=== PATIENT | male | born 1980 | race Caucasian/White ===

== ENCOUNTER → 2017-04-23 | Outpatient (CLI) | payer OTHER | LOC: FIMAGING 16:47 | PROVIDERS: ATTEND Physician Assistant Medical | DX: N20.1 Calculus of ureter (principal) ==

== ENCOUNTER 2017-04-30 10:38 | Day surgery (SDC) | payer OTHER ==
--- NOTE | 2017-04-29 17:41 | GHP ---
[f rep st] PREOP HISTORY AND PHYSICAL DATE OF ADMISSION: 04/30/2017 By history, this is a 36-year-old gentleman who has had hematuria and he was noted in November 2016 to have an imaging status that suggested a 7 mm right ureteral stone. He has had a CAT scan on and January 2017 and the stones were identified. He has had a KUB recently that confirmed t he position. He is admitted for right ureteroscopy. PAST MEDICAL HISTORY: Hematuria and ureteral calculi. PAST SURGICAL HISTORY: None. MEDICATION: Gemfibrozil, tamsulosin. ALLERGIES: None. FAMILY HISTORY: Positive for heart disease and diabetes. SOCIAL HISTORY: Has moderate alcohol consumption, nonsmoker. . No children. REVIEW OF SYSTEMS: Negative cardiac, respiratory, GI and endocrine. PHYSICAL EXAMINATION: VITAL SIGNS: Stable. CHEST: Clear. HEART: Regular rate and rhythm. ABDOM EN: Normal. No organomegaly, rebound or guarding. LOWER EXTREMITIES: Normal. PLAN: At the present time, he is admitted for the ureteroscopy. /[id number]/MODL
--- NOTE | 2017-04-30 08:34 | PDHPUP ---
History & Physical Update H&P update statement: This history and physical update is based on an assessment of the patient which was completed after admission or registration (within 24 hours), but prior to the surgery/procedure. H&P update: H&P reviewed & patient examined, no change in patient's condition since H&P completed
[~2017-04-30 10:38] MED LIST: ceFAZolin 2 GM/SWFI 2 GM/20 ML SYR IVP ONE
[2017-04-30] MEDS ORDERED: LIDOCAINE 1% 2 ML INJ ID PRN (10:46)
[2017-04-30] MEDS ORDERED: LR 1,000 ML IV ONE (10:46)
--- NOTE | 2017-04-30 12:18 | PDANEPAE ---
ANE Past Medical History - Cardiovascular History Hx Hypertension: Yes Hx Arrhythmias: Yes Hx Chest Pain: No Hx Coronary Artery / Peripheral Vascular Disease: No Hx CHF / Valvular Disease: No Hx Palpitations: No Cardiovascular History Comment: non sinus arrythmia. - Pulmonary History Hx COPD: No Hx Asthma/Reactive Airway Disease: No Hx Recent Upper Respiratory Infection: No Hx Oxygen in Use at Home: No Hx Sleep Apnea: No Sleep Apnea Screening Result - Last Documented: Negative - Neurologic History Hx Cerebrovascular Accident: No Hx Seizures: No Hx Dementia: No - Endocrine History Hx Diabetes: No - Renal History Hx Renal Disorders: Yes Renal History Comment: hx kidney stones - Liver History Hx Hepatic Disorders: Yes Hepatic History Comment: fatty liver - Neurological & Psychiatric Hx Hx Neurological and Psychiatric Disorders: No - Cancer History Hx Cancer: No - Congenital Disorder History Hx Congenital Disorders: No - GI History Hx Gastrointestinal Disorders: No - Surgical History Prior Surgeries: tonsillectomy at age 4 ANE Review of Systems Review of Systems: - Exercise capacity METS (RN): 6 METS ANE Patient History - Allergies Allergies/Adverse Reactions: No Known Drug Allergies Allergy (Verified 04/30/17 08:35) - Home Medications Home Medications: Gemfibrozil 04/30/17 [Last Taken 04/30/17] Tamsulosin HCl 04/30/17 [Last Taken 04/30/17] - NPO status NPO Since - Liquids (Date): 04/29/17 NPO Since - Liquids (Time): 22:30 NPO Since - Solids (Date): 04/29/17 NPO Since - Solids (Time): 22:30 - Smoking Hx Smoking Status: Never smoked - Family Anes Hx Family Hx Anesthesia Complications: na ANE Labs/Vital Signs - Vital Signs Blood Pressure: 152/91 Heart Rate: 85 Respiratory Rate: 16 O2 Sat (%): 96 Height: 193.04 cm Weight: 132.903 kg ANE Physical Exam - Airway Mallampati Score: Class 2 - ASA Status ASA Status: II ANE Anesthesia Plan Anesthesia Plan: GA w LMA
[2017-04-30] MEDS ORDERED: MIDAZOLAM 2 MG/2 ML VIAL ONE (12:28)
[2017-04-30] MEDS ORDERED: PROPOFOL 200 MG/20 ML VIAL ONE (12:29)
[2017-04-30] MEDS ORDERED: fentaNYL 100 MCG/2 ML INJ ONE ×3 (12:29→14:39)
[2017-04-30] MEDS ORDERED: LIDOCAINE 2% JELLY 5 ML TUBE ONE (12:38)
[2017-04-30] MEDS ORDERED: METOCLOPRAMIDE 10 MG/2 ML VIAL ONE (12:38)
[2017-04-30] MEDS ORDERED: ROCURONIUM 50 MG/5 ML VIAL ONE (12:42)
[2017-04-30] MEDS ORDERED: IOPAMIDOL (ISOVUE-300) 150 ML BTL ONE (12:50)
[2017-04-30] MEDS ORDERED: IOPAMIDOL (ISOVUE-M 300) 15 ML VIAL ONE (12:51)
[2017-04-30] MEDS ORDERED: LIDOCAINE 2% JELLY 20 ML (UROJECT) ONE (12:51)
--- NOTE | 2017-04-30 13:40 | POSTOPPROG ---
Post Op Note Date of Operation: 04/30/17 Surgeon: Everton Campbell Anesthesiologist: Justin Anesthesia: LMA Pre-op Diagnosis: ureterolithiasis rt Procedure: ureteroscopy--dictated Inf/Abcess present in the surg proc area at time of surgery?: No EBL: Minimal Drains: Other (stent) Specimen(s): stone
[2017-04-30] MEDS ORDERED: NALOXONE HCL 0.4 MG/ML INJ IVP PRN (13:45)
[2017-04-30] MEDS ORDERED: HYDROCODONE/APAP 5/325 TAB PO PRN (13:45)
[2017-04-30] MEDS ORDERED: LR 500 ML IV PRN (13:45)
[2017-04-30] MEDS ORDERED: PROMETHAZINE HCL 25 MG/ML INJ IVP PRN (13:45)
[2017-04-30] MEDS ORDERED: ONDANSETRON 4 MG/2 ML VIAL IVP PRN (13:45)
--- NOTE | 2017-04-30 13:46 | POSTANESTH ---
Post Anesthetic Evaluation Cardiovascular Status: Normal, Stable Respiratory Status: Normal, Stable Level of Consciousness/Mental Status: Can Participate in Eval Pain Control: Adequate, Prn Tx Ordered Nausea/Vomiting Control: Adequate, Prn Tx Ordered Complications Possibly Related to Anesthesia: None Noted
--- NOTE | 2017-04-30 13:55 | GOP ---
[f rep st] OPERATIVE REPORT DATE OF OPERATION: 04/30/2017 SURGEON: Everton Campbell MD ANESTHESIA: General anesthesia. ANESTHESIOLOGIST: Dr. Anderson provided general anesthesia. PREOPERATIVE DIAGNOSIS: Right ureteral calculus. POSTOPERATIVE DIAGNOSIS: Right ureteral calculus. PROCEDURE PERFORMED: Right ureteroscopic removal of stone with lithotripsy and stent placement fluor oscopy. FINDINGS: SPECIMENS: Stone for analysis. DESCRIPTION OF PROCEDURE: After being prepped and draped in normal sterile fashion, his meatus was d ilated to accommodate the cystoscope to a 22-[place]. Scope was passed in the bladder. He had no smiley ors, stones, foreign bodies or diverticula of the bladder. Right ureteral orifice was cannulated wit h a [place] catheter, and the stone was noted in the proximal ureter, and at that point, I passed the ureteral access sheath up to the stone, and fragmented the pieces. Several pieces went up into the kidney, and so I went up and lasered those, and then grasped and extracted all the stone fragments th at I could visualize with the stone basket. Because of the edema noted from the computer terminal operator position o f the stone, I elected to place a 4.7 multi-length stent curled in the renal pelvis, curled in the bl adder. He will be discharged home to see me in a week for stent removal. No complications encounter ed. /[id number]/MODL
[2017-04-30] MEDS ORDERED: ONDANSETRON 4 MG/2 ML VIAL ONE (14:17)
[2017-04-30] MEDS ORDERED: PROMETHAZINE HCL 25 MG/ML INJ ONE (14:39)
[2017-04-30] MEDS: fentaNYL 100 MCG/2 ML INJ IVP PRN ×2 (14:40→15:06)
[2017-04-30] MEDS ORDERED: HYDROCODONE/APAP 5/325 TAB ONE ×2 (15:05→15:45)
[2017-04-30] MEDS ORDERED: PHENAZOPYRIDINE HCL 200 MG TAB ONE (15:15)
[2017-04-30 15:37] VITALS: PULSE 69; RESP 18; TEMP 98.2
[2017-04-30 17:24] VITALS: BP 126/73; O2SAT 97
[2017-04-30] MEDS ORDERED: PHENAZOPYRIDINE HCL 200 MG TAB PO SCH (19:00)
== END 2017-04-30 17:15 | disposition home or self-care (01) ==
LOC: FSGY 10:38
PROVIDERS: ATTEND Specialist
DX: N20.1 Calculus of ureter (principal); I10 Essential (primary) hypertension
CPT/HCPCS: 82365-90; C1758; C1769; C2625; J2250; J2405; J2550; J2704; J2765; J3010; Q9967

== ENCOUNTER 2017-05-04 18:24 | Observation (INO) | payer OTHER ==
[2017-05-04] MEDS ORDERED: HYDROmorphONE/DILAUDID 1 MG/ML INJ IVP ONE ×2 (18:55→19:13)
[2017-05-04] MEDS ORDERED: NS 1,000 ML IV ONE (18:55)
[2017-05-04] MEDS ORDERED: ONDANSETRON 4 MG/2 ML VIAL IVP ONE (18:55)
[2017-05-04 19:10] LABS: PLATELET COUNT 489 10^3/uL (150-400)
--- NOTE | 2017-05-04 20:41 | EDPHY ---
H & P Time Seen by Provider: 05/04/17 18:55 HPI/ROS: Chief complaint. Abdominal pain HPI. 36-year-old male presents emergency department with right flank right lower quadrant pain. The patient had a large kidney stone about a week ago and had a ureteral stent placed. He was feeling better and saw the urologist in the office today and the stent was removed. Then this afternoon patient has had increasing pain nausea vomiting that is quite similar to his previous kidney stone. Bloody urine but no fever. Nausea and vomiting and unable to keep outpatient medications down. Patient cannot find comfortable position ROS Constitutional. no fever/chills, no weakness Eyes. no problems with vision ENT. no sore throat, no nasal drainage Cardiovascular. no chest pain Respiratory. no shortness of breath, no cough Abdominal. Right flank pain with nausea vomiting . Bloody urine MS. no calf pain/swelling, no neck/back pain, no joint pain Skin. no rash Lymph. no swollen glands Neuro. no headache, no dizziness, no difficulty walking or with speech Past Medical/Surgical History: Past medical history kidney stones, ureteral stent, dyslipidemia, hypertension Social History: , nonsmoker, no alcohol Smoking Status: Never smoked Physical Exam: General Appearance: Alert well-developed male moderate distress vital signs are stable Eyes: Pupils equal and round no pallor or injection. ENT, Mouth: Mucous membranes are moist. Respiratory: There are no retractions, lungs are clear to auscultation. Cardiovascular: Regular rate and rhythm. Gastrointestinal: Abdomen is soft and nontender, no masses, bowel sounds normal. Patient shows me right flank pain however it is not worse to palpation Neurological: Awake and alert, sensory and motor exams grossly normal. Skin: Warm and dry, no rashes. Musculoskeletal: Neck is supple nontender. Extremities symmetrical, full range of motion. Psychiatric: Patient is oriented X 3, there is no agitation. Constitutional: Initial Vital Signs Temperature (C) 36.5 C 05/04/17 18:42 Heart Rate 81 05/04/17 18:42 Respiratory Rate 24 H 05/04/17 18:42 Blood Pressure 142/80 H 05/04/17 18:42 O2 Sat (%) 98 05/04/17 18:42 O2 Delivery Mode Room Air Allergies/Adverse Reactions: No Known Drug Allergies Allergy (Verified 05/04/17 18:40) Home Medications: Medication Instructions Recorded Gemfibrozil 04/30/17 Tamsulosin HCl 04/30/17 Ibuprofen 05/04/17 Oxycodone HCl 05/04/17 Uribel Capsule 05/04/17 Medical Decision Making - Diagnostics Imaging Results: Imaging Impressions Abdomen/Pelvis CT 05/04/17 18:56 Impression: 1. Persistent right hydronephrosis, moderate severity, with perinephric and periureteric urine extravasation. 2 small 1 mm calculi present in the distal right ureter just above the urinary bladder. Results called to Dr. Wagner Krishna at 8:20 PM. Attention: This CT examination is specifically designed to evaluate patients who are clinically suspected of having acute obstructive uropathy. This examination does not use radiographic contrast, and as such, provides only a limited evaluation of the abdomen, pelvis and retroperitoneum. If there is further clinical suspicion for pathological conditions other than obstructive uropathy, a complete CT evaluation of the abdomen and pelvis utilizing intravenous, oral, and rectal contrast should be considered. Noncontrast CT scan shows persistent right hydronephrosis of moderate severity with urine extravasation and to 1 mm calculi in the distal ureter. Procedures: IV normal saline. Dilaudid and Zofran. ED Course/Re-evaluation: On re-evaluation patient is more comfortable. I recommended admission and he agrees I consulted discussed case with Dr. García, urology, who agrees to see the patient in consult I consulted discussed case with , hospitalist, who agrees to the admission Patient and I discussed treatment plan including recommendation for admission. He expresses understanding and agreement Differential Diagnosis: I considered kidney stone, persistent hydronephrosis, edema of the ureter causing hydronephrosis, urinary tract infection - Data Points Laboratory Results: Laboratory Results 05/04/17 19:00 05/04/17 19:00 05/04/17 05/04/17 19:00 19:00 WBC 10.59 10^3/uL H 10^3/uL (3.80-9.50) RBC 5.10 10^6/uL 10^6/uL (4.40-6.38) Hgb 16.0 g/dL g/dL (13.7-17.5) Hct 45.3 % % (40.0-51.0) MCV 88.8 fL fL (81.5-99.8) MCH 31.4 pg pg (27.9-34.1) MCHC 35.3 g/dL g/dL (32.4-36.7) RDW 12.1 % % (11.5-15.2) Plt Count 489 10^3/uL H 10^3/uL (150-400) MPV 8.5 fL L fL (8.7-11.7) Neut % (Auto) 69.1 % % (39.3-74.2) Lymph % (Auto) 23.9 % % (15.0-45.0) [place] % (Auto) 4.3 % L % (4.5-13.0) Eos % (Auto) 1.2 % % (0.6-7.6) Baso % (Auto) 0.8 % % (0.3-1.7) Nucleat RBC Rel Count 0.0 % % (0.0-0.2) Absolute Neuts (auto) 7.32 10^3/uL H 10^3/uL (1.70-6.50) Absolute Lymphs (auto) 2.53 10^3/uL 10^3/uL (1.00-3.00) Absolute Monos (auto) 0.46 10^3/uL 10^3/uL (0.30-0.80) Absolute Eos (auto) 0.13 10^3/uL 10^3/uL (0.03-0.40) Absolute Basos (auto) 0.08 10^3/uL 10^3/uL (0.02-0.10) Absolute Nucleated RBC 0.00 10^3/uL 10^3/uL (0-0.01) Immature Gran % 0.7 % % (0.0-1.1) Immature Gran # 0.07 10^3/uL 10^3/uL (0.00-0.10) Sodium 143 mEq/L mEq/L (135-145) Potassium 4.1 mEq/L mEq/L (3.5-5.2) Chloride 105 mEq/L mEq/L (97-110) Carbon Dioxide 18 mEq/l L mEq/l (22-31) Anion Gap 20 mEq/L H mEq/L (8-16) BUN 20 mg/dL mg/dL (7-23) Creatinine 1.2 mg/dL mg/dL (0.7-1.3) Estimated GFR > 60 Glucose 127 mg/dL H mg/dL (70-100) Calcium 10.3 mg/dL mg/dL (8.5-10.4) Medications Given: Discontinued Medications Hydromorphone HCl (Dilaudid) 1 mg IVP EDNOW ONE Stop: 05/04/17 18:56 Last Admin: 05/04/17 19:05 Dose: 1 mg Hydromorphone HCl (Dilaudid) 1 mg IVP EDNOW ONE Stop: 05/04/17 19:14 Last Admin: 05/04/17 19:17 Dose: 1 mg Sodium Chloride (Ns) 1,000 mls @ 0 mls/hr IV EDNOW ONE; Wide Open PRN Reason: Protocol Stop: 05/04/17 18:56 Last Admin: 05/04/17 19:04 Dose: 1,000 mls Ondansetron HCl (Zofran) 4 mg IVP EDNOW ONE Stop: 05/04/17 18:56 Last Admin: 05/04/17 19:04 Dose: 4 mg Departure - Departure Disposition: Home, Routine, Self-Care Clinical Impression: Calculus of right kidney Condition: Fair Referrals: Wagner Mahan [Primary Care Provider] - As per Instructions
[2017-05-04] MEDS ORDERED: HYDROmorphONE/DILAUDID 2 MG/ML INJ IVP PRN (22:27)
[2017-05-04] MEDS ORDERED: OXYCODONE/APAP 5/325 TAB PO PRN (22:40)
[2017-05-04] MEDS ORDERED: ONDANSETRON 4 MG/2 ML VIAL IVP PRN (22:41)
[2017-05-04] MEDS ORDERED: PROMETHAZINE HCL 25 MG/ML INJ IVP PRN (22:41)
[2017-05-04] MEDS ORDERED: NS 1,000 ML IV SCH (22:45)
--- NOTE | 2017-05-04 23:11 | GHP ---
[f rep st] HISTORY AND PHYSICAL DATE OF ADMISSION: 05/04/2017 CHIEF COMPLAINT: Right flank pain. HISTORY OF PRESENT ILLNESS: The patient is a 36-year-old male, who had lithotripsy and stenting for a large right kidney stone on April [address] Campbell. He did well after surgery, and saw Dr. Hemal camacho in the office today and had the stent removed. Shortly after the stent was removed, he developed worsening flank pain. The pain started in his suprapubic pelvis and radiated around to his right fla nk. There has been no fever. Pain was 10/10 and so severe he almost passed out. He had retching an d persistent nausea and vomiting, and was unable to keep anything down. He had bloody urine. PAST MEDICAL HISTORY: 1. Hypertension. 2. Hyperlipidemia. MEDICATIONS: Please see computerized record for full detailed list. ALLERGIES: No known drug allergies. SOCIAL HISTORY: No smoking. No alcohol. He lives with his . REVIEW OF SYSTEMS: Complete review of systems obtained. Review of systems negative regarding consti tutional, HEENT, GI, pulmonary, cardiovascular, , hematology, skin, musculoskeletal, endocrine, psy ch, except for positives and negatives as in HPI. FAMILY HISTORY: Reviewed and noncontributory to presenting complaint. LABORATORY DATA: White count 10.59, hematocrit 45.3, platelets 489. Sodium 143, potassium 4.1, chlo ride 105, bicarb 18, BUN 20, creatinine 1.2, glucose 127. Urinalysis is positive for blood but no in fection. IMAGING: CT scan of the abdomen and pelvis shows moderate right hydronephrosis and some perinephric urine extravasation. This case was discussed with Dr. Wagner Krishna. He has spoken with Dr. García, adjunct communications faculty member for Dr. Campbell , and Urology will see him in the morning. ASSESSMENT AND PLAN: Right hydronephrosis with severe flank pain, after ureteral stent removal for k idney stone management. There is currently no evidence for infection. We will hydrate overnight, an d pain control with IV Dilaudid. We will make him n.p.o. after midnight, and Urology will see him in the morning and anticipate possible need for procedure. CODE STATUS: Full. ADMISSION STATUS: 1. We will admit to observation. Re-evaluate tomorrow regarding ongoing need for hospitalization. 2. DVT prophylaxis. We will do SCDs only, given anticipated procedure. /[id number]/MODL
[2017-05-05 05:28] LABS: PLATELET COUNT 409 10^3/uL (150-400)
--- NOTE | 2017-05-05 06:34 | CPEKG ---
Heart Rate: 71 RR Interval: 845 P-R Interval: 168 QRSD Interval: 96 QT Interval: 396 QTC Interval: 431 P [place]: 5 QRS [place]: 59 T Wave [place]: 32 EKG Severity - NORMAL ECG - EKG Impression: SINUS RHYTHM Electronically Signed By: Baudilio Sandhu 05-May-2017 08:40:15
[2017-05-05] MEDS ORDERED: GEMFIBROZIL 600 MG TAB PO SCH (07:30)
--- NOTE | 2017-05-05 08:21 | SOAPPROG ---
[facility] Progress Note Assessment/Plan: Assessment: Ureterolithiasis Acute right, dc home since pt ol Plan: as noted 05/05/17 08:21 Subjective: pain resolved Objective: Vital Signs Temp Pulse Resp BP Pulse Ox 36.8 C 76 10 L 148/77 H 94 05/05/17 04:00 05/05/17 04:00 05/05/17 04:00 05/05/17 04:00 05/05/17 04:00 Laboratory Results 05/05/17 05:01 05/05/17 05:01 05/04/17 05/05/17 05/06/17 05:59 05:59 05:59 Intake Total 1128 Output Total 450 Balance 678 Physical Exam - Physical Exam General Appearance: alert Respiratory: No respiratory distress Cardiac/Chest: regular rate, rhythm Abdomen: soft Back: No CVA tenderness Neuro/Psych: alert, oriented x 3 ICD10 Worksheet Patient Problems: Problems Problem Status Onset Calculus of right kidney Acute Ureterolithiasis Acute
[2017-05-05 08:49] VITALS: BP 128/73; PULSE 71; RESP 13; TEMP 97.7; O2SAT 93
[2017-05-05] MEDS ORDERED: TAMSULOSIN HCL 0.4 MG CAP PO SCH (09:00)
[2017-05-05] MEDS ORDERED: [UNRECOGNIZED DRUG - OTHER] PO SCH (09:00)
[2017-05-05] MEDS: ACETAMINOPHEN 325 MG TAB PO PRN ×2 (09:27→13:06)
--- NOTE | 2017-05-05 10:43 | HOSPPROG ---
Hospitalist Progress Note Assessment/Plan: #Acute right ureterolithiasis: passed several stones -seen by Dr. Campbell #HLD: home meds #Acute flank pain: controlled with APAP #Disp: DC today Subjective: passed several stones last night. Pain much better, controlled with APAP. Objective: Vital Signs Temp Pulse Resp BP Pulse Ox 36.5 C 71 13 128/73 H 93 05/05/17 08:48 05/05/17 08:48 05/05/17 08:48 05/05/17 08:48 05/05/17 08:48 Laboratory Results 05/05/17 05:01 05/05/17 05:01 05/04/17 05/05/17 05/06/17 05:59 05:59 05:59 Intake Total 1128 Output Total 450 Balance 678 - Physical Exam Constitutional: no apparent distress Eyes: PERRL Ears, Nose, Mouth, Throat: moist mucous membranes, hearing normal Cardiovascular: regular rate and rhythym, no murmur, rub, or gallop Respiratory: no respiratory distress Gastrointestinal: normoactive bowel sounds Genitourinary: other (mild r CVA TTP) Skin: warm Musculoskeletal: full muscle strength Neurologic: AAOx3 ICD10 Worksheet Patient Problems: Problems Problem Status Onset Calculus of right kidney Acute Ureterolithiasis Acute
--- NOTE | 2017-05-05 11:52 | ASMTCMCOM ---
CM Note CM Note Notes: Chart reviewed. Patient is 36 year old male admitted with kidney stone. No needs identified at this time. CM availble should needs arise. Date Signed: 05/05/2017 11:52 AM Electronically Signed By:Anupama Figueroa RN
--- NOTE | 2017-05-05 15:50 | GDS ---
[f rep st] DISCHARGE SUMMARY DISCHARGE DIAGNOSES: 1. Acute right ureterolithiasis. 2. Right flank pain. 3. Hypertension. 4. Hyperlipidemia. HISTORY OF PRESENT ILLNESS: A 36-year-old male, who had lithotripsy and stenting for a large right k idney stone on April [address] Campbell. He did well after surgery and saw Dr. Campbell in the office y esterday with stent removal. Shortly after stent was removed, he developed worsening right flank [place]. It was in the suprapubic region and radiated to his right flank. Denies fevers, chills, or sweat s. Pain was 10/10 and sharp to the point where he almost passed out. He had retching and persistent nausea and vomiting. HOSPITAL COURSE: 1. Right ureterolithiasis: Patient has passed several stones here with minimal pain this morning. He is now eating without issue. Pain is controlled on Tylenol. Recommend p.r.n. APAP and Advil. He will follow up with Dr. Campbell. 2. Hyperlipidemia: Continue home medications. 3. Hypertension: Home medications. 4. Acute flank pain: Again, secondary to stones, now nearly resolved. May continue Advil and Tylen ol as needed. DISPOSITION: Patient is stable for discharge home. MEDICATIONS: New medications: p.r.n. Tylenol and Advil. FOLLOWUP: Dr. Campbell with Urology. /[id number]/MODL
== END 2017-05-05 13:35 | disposition home or self-care (01) ==
LOC: INTOOBSV 20:41 → F1N 21:53
PROVIDERS: ADMIT Internal Medicine; ATTEND Internal Medicine
DX: N13.2 Hydronephrosis with renal and ureteral calculous obstruction (principal); I10 Essential (primary) hypertension; E78.5 Hyperlipidemia, unspecified; E86.9 Volume depletion, unspecified; Z87.442 Personal history of urinary calculi
CPT/HCPCS: 74176; 93005; G0378; 96374; J1170; J2405

== ENCOUNTER 2017-08-17 14:17 | Observation (INO) | payer OTHER ==
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
[2017-08-17] MEDS ORDERED: NS 1,000 ML IV ONE (14:53)
[2017-08-17 15:06] LABS: PLATELET COUNT 373 10^3/uL (150-400)
[2017-08-17] MEDS ORDERED: DILTIAZEM 25 MG/5 ML VIAL IVP ONE (15:12)
[2017-08-17] MEDS ORDERED: DILTIAZEM 125 MG in D5W 125 ML IV ONE (15:12)
[2017-08-17 15:16] LABS: INR 1.07 (0.83-1.16); PROTIME(PATIENT) 14.1 SEC (12.0-15.0)
[2017-08-17] MEDS ORDERED: AMOXICILLIN/CLAVULANATE POT 875/125 MG TAB PO ONE (15:24)
[2017-08-17] MEDS ORDERED: ONDANSETRON 4 MG/2 ML VIAL IVP PRN (15:53)
[2017-08-17] MEDS ORDERED: ONDANSETRON DISINTEGRATING 4 MG TAB PO PRN (15:53)
[2017-08-17] MEDS ORDERED: ACETAMINOPHEN 325 MG TAB PO PRN (15:53)
[2017-08-17] MEDS ORDERED: DILTIAZEM 125 MG in D5W 125 ML IV SCH (16:00)
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
[2017-08-17] MEDS ORDERED: LORazepam 2 MG/ML INJ IVP ONE (16:37)
[2017-08-17] MEDS ORDERED: KETOROLAC 15 MG/1 ML SDV IVP ONE (16:37)
[2017-08-17] MEDS ORDERED: KETOROLAC 30 MG/1 ML SDV ONE (16:38)
[2017-08-17] MEDS ORDERED: LORazepam 2 MG/ML INJ ONE (16:39)
[2017-08-17] MEDS ORDERED: TDAP ADULT 0.5 ML INJ (BOOSTRIX) IM ONE (17:09)
[2017-08-17 17:23] VITALS: BP 144/97
[2017-08-17] MEDS ORDERED: GEMFIBROZIL 600 MG TAB PO SCH (17:30)
[2017-08-17] MEDS ORDERED: DILTIAZEM 30 MG TAB PO SCH (18:00)
[2017-08-17] MEDS ORDERED: METOPROLOL TARTRATE 25 MG TAB PO ONE (18:13)
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
[2017-08-17] MEDS ORDERED: AMOXICILLIN/CLAVULANATE POT 875/125 MG TAB PO SCH (21:00)
[2017-08-18] MEDS ORDERED: MULTIVITAMINS 1 EACH TAB PO SCH (09:00)
[2017-08-18] MEDS ORDERED: ASPIRIN 325 MG TAB PO SCH (09:00)
--- NOTE | 2017-08-19 08:37 | CPEKG ---
Heart Rate: 157 RR Interval: 382 QRSD Interval: 102 QT Interval: 312 QTC Interval: 505 QRS Arley: 86 T Wave Arley: 17 EKG Severity - ABNORMAL ECG - EKG Impression: ATRIAL FIBRILLATION EKG Impression: VENTRICULAR PREMATURE COMPLEX EKG Impression: MINIMAL ST DEPRESSION, LATERAL LEADS EKG Impression: PROLONGED QT INTERVAL EKG Impression: ATRIAL FIBRILLATION WITH RVR HAS REPLACED NORMAL SINUS RHYTHM NOTED ON PRIOR ECG Electronically Signed By: Baudilio Sandhu 19-Aug-2017 11:30:44
== END 2017-08-17 19:33 | disposition home or self-care (01) ==
LOC: SUPCPDRO 14:17 → F2W 17:13
PROVIDERS: ADMIT Student in an Organized Health Care Education/Training Program; ATTEND Student in an Organized Health Care Education/Training Program
DX: S61.216A Laceration without foreign body of right little finger without damage to nail, initial encounter (principal); Y04.1XXA Assault by human bite, initial encounter; Y92.238 Other place in hospital as the place of occurrence of the external cause; Y99.0 Civilian activity done for income or pay; I48.0 Paroxysmal atrial fibrillation; J44.9 Chronic obstructive pulmonary disease, unspecified; E78.5 Hyperlipidemia, unspecified; I10 Essential (primary) hypertension; Z87.442 Personal history of urinary calculi; Z23 Encounter for immunization
CPT/HCPCS: 71046; 73140; 90471; 93005; G0378; 96374; J1885; J2060

== ENCOUNTER 2017-08-19 10:32 | Emergency (ER) | payer OTHER ==
[2017-08-19] MEDS ORDERED: SULFAMETHOX/TMP 800/160 MG 1 TAB PO ONE (11:19)
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
[2017-08-19 11:53] VITALS: BP 131/93
== END 2017-08-19 11:52 | disposition home or self-care (01) ==
LOC: CED 10:32
DX: S61.256A Open bite of right little finger without damage to nail, initial encounter (principal); I10 Essential (primary) hypertension; Z79.82 Long term (current) use of aspirin; Y04.1XXA Assault by human bite, initial encounter; Y92.69 Other specified industrial and construction area as the place of occurrence of the external cause; Y99.0 Civilian activity done for income or pay; Y93.89 Activity, other specified

== ENCOUNTER → 2018-02-03 | Outpatient (CLI) | payer OTHER | LOC: FCPNEURO 21:00 | PROVIDERS: ATTEND Psychiatry & Neurology Sleep Medicine | DX: G47.33 Obstructive sleep apnea (adult) (pediatric) (principal); G47.61 Periodic limb movement disorder ==

== ENCOUNTER 2018-02-24 06:24 | Day surgery (SDC) | payer OTHER ==
[2018-02-24] MEDS ORDERED: GABAPENTIN 300 MG CAP PO ONE (07:28)
[2018-02-24] MEDS ORDERED: ceFAZolin 2 GM/DEXTROSE 100 ML IV ONE (07:28)
[2018-02-24] MEDS ORDERED: ACETAMINOPHEN 500 MG TAB PO ONE (07:28)
[2018-02-24] MEDS ORDERED: LR 1,000 ML IV ONE (07:29)
[2018-02-24] MEDS ORDERED: BACITRACIN 50,000 UNITS/10 ML SYR IRR ONE (07:50)
[2018-02-24] MEDS ORDERED: BUPIVACAINE/EPI 0.25% 30 ML SDV ONE (07:50)
[2018-02-24] MEDS ORDERED: CHLORHEXIDINE GLUC HIBICLENS 118 ML BTL TP ONE (07:51)
[2018-02-24] MEDS ORDERED: THROMBIN (BOVINE) 5,000 UNIT VIAL TP ONE (07:51)
[2018-02-24] MEDS ORDERED: HYDROmorphONE/DILAUDID 2 MG/ML INJ IVP PRN (08:25)
[2018-02-24] MEDS ORDERED: ONDANSETRON 4 MG/2 ML VIAL IVP PRN (08:25)
[2018-02-24] MEDS ORDERED: NALOXONE HCL 0.4 MG/ML INJ IVP PRN (08:25)
[2018-02-24] MEDS ORDERED: fentaNYL 100 MCG/2 ML INJ IVP PRN (08:25)
[2018-02-24] MEDS ORDERED: METOCLOPRAMIDE 10 MG/2 ML VIAL IVP PRN (08:25)
[2018-02-24] MEDS ORDERED: oxyCODONE IR 5 MG TAB PO PRN ×2 (08:25→11:06)
[2018-02-24] MEDS ORDERED: LR 500 ML IV PRN (08:25)
[2018-02-24] MEDS ORDERED: PHENYLEPHRINE HCL 100 MCG/ML SYR IVP PRN (08:25)
[2018-02-24] MEDS ORDERED: MIDAZOLAM 2 MG/2 ML VIAL IVP ONE (08:25)
[2018-02-24] MEDS ORDERED: PROMETHAZINE HCL 25 MG/ML INJ IVP PRN (08:25)
--- NOTE | 2018-02-24 08:27 | PDHPUP ---
<Janine Lino - Last Filed: 02/24/18 08:26> History & Physical Update H&P update statement: This history and physical update is based on an assessment of the patient which was completed after admission or registration (within 24 hours), but prior to the surgery/procedure. H&P update: H&P reviewed & patient examined, no change in patient's condition since H&P completed <Tomas Pizano - Last Filed: 02/24/18 08:50> History & Physical Update H&P update statement: This history and physical update is based on an assessment of the patient which was completed after admission or registration (within 24 hours), but prior to the surgery/procedure. sinus rhythm normal work of breathing
--- NOTE | 2018-02-24 08:27 | PDANEPAE ---
ANE Past Medical History - Cardiovascular History Hx Hypertension: Yes Hx Arrhythmias: Yes Hx Chest Pain: No Hx Coronary Artery / Peripheral Vascular Disease: No Hx CHF / Valvular Disease: No Hx Palpitations: No Cardiovascular History Comment: non sinus arrythmia. A fib with RVR off and for five years - Pulmonary History Hx COPD: No Hx Asthma/Reactive Airway Disease: No Hx Recent Upper Respiratory Infection: No Hx Oxygen in Use at Home: No Hx Sleep Apnea: No - Neurologic History Hx Cerebrovascular Accident: No Hx Seizures: No Hx Dementia: No - Endocrine History Hx Diabetes: No - Renal History Hx Renal Disorders: Yes Renal History Comment: hx kidney stones - Liver History Hx Hepatic Disorders: Yes Hepatic History Comment: fatty liver - Neurological & Psychiatric Hx Hx Neurological and Psychiatric Disorders: No - Cancer History Hx Cancer: No - Congenital Disorder History Hx Congenital Disorders: No - GI History Hx Gastrointestinal Disorders: No - Chronic Pain History Chronic Pain: No - Surgical History Prior Surgeries: tonsillectomy at age 4 ANE Review of Systems Review of Systems: - Exercise capacity METS (RN): 3 METS ANE Patient History - Allergies Allergies/Adverse Reactions: No Known Drug Allergies Allergy (Verified 05/04/17 18:40) - Home Medications Home Medications: Gemfibrozil [Lopid 600 MG (*)] 600 mg PO BIDAC 05/04/17 [Last Taken 02/24/18 05: 30] Apixaban [Eliquis] 5 mg PO BID 02/24/18 [Last Taken 1 Week Ago ~02/17/18] Diltiazem HCl [Cartia XT 180mg] 180 mg PO DAILY 02/24/18 [Last Taken 02/24/18 06 :00] Propafenone HCl Sr [Rythmol Sr 225mg (*)] 225 mg PO BID 02/24/18 [Last Taken 05:30] oxyCODONE IR [Oxycodone Ir (*)] 10 mg PO Q4-6PRN PRN 02/24/18 [Last Taken 04:30] - NPO status NPO Since - Liquids (Date): 02/24/18 NPO Since - Liquids (Time): 04:30 NPO Since - Solids (Date): 02/23/18 NPO Since - Solids (Time): 18:30 - Smoking Hx Smoking Status: Never smoked - Family Anes Hx Family Hx Anesthesia Complications: na ANE Labs/Vital Signs - Vital Signs Blood Pressure: 145/94 Heart Rate: 93 Respiratory Rate: 18 O2 Sat (%): 95 Height: 193.04 cm Weight: 128.367 kg ANE Physical Exam - Airway Neck exam: FROM Mallampati Score: Class 2 Mouth exam: normal dental/mouth exam - Pulmonary Pulmonary: no respiratory distress, no rales or rhonchi, clear to auscultation - Cardiovascular Cardiovascular: regular rate and rhythym, no murmur, rub, or gallop - ASA Status ASA Status: II ANE Anesthesia Plan Anesthesia Plan: general endotracheal anesthesia
[2018-02-24] MEDS ORDERED: fentaNYL 250 MCG/5 ML INJ ONE (08:29)
[2018-02-24] MEDS ORDERED: ROCURONIUM 50 MG/5 ML VIAL ONE (08:29)
[2018-02-24] MEDS ORDERED: LIDOCAINE 2% 5 ML SDV ONE (08:29)
[2018-02-24] MEDS ORDERED: PROPOFOL/EMULSION 500 MG/50 ML BOTTLE IV ONE ×3 (08:29→08:30)
[2018-02-24] MEDS ORDERED: PROPOFOL 200 MG/20 ML VIAL ONE (08:29)
[2018-02-24] MEDS ORDERED: DEXAMETHASONE 4 MG/ML VIAL ONE (08:29)
--- NOTE | 2018-02-24 10:12 | GHP ---
DATE OF ADMISSION: 02/24/2018 CHIEF COMPLAINT: Recurrent right leg pain after a microdiskectomy. HISTORY OF PRESENT ILLNESS: This is a 37-year-old male who is approximately 7 weeks out from an L4-[address] Pizano on 01/01, who was doing well but then presented to [facility] last week with recurrent right leg pain and recurrent disk herniation resulting in back and right leg pain. He had no weakness. Postoperatively, he did develop symptomatic atrial fibrilla tion during his last surgery, which resulted in a prolonged hospital stay. He is now stable and on E liquis. He has been seen by Dr. Pizano at [facility] where he was then discharged where he went home but has been unfortunately unable to get out of bed due to his pain and has elected to return electively today to [facility] for a right-sided redo L4-5 right-sided microdi skectomy. The patient has seen his sheet sorter and has been cleared for his atrial fibrillation. Nichole trent has been off his blood thinner since last Thursday, a little bit over a week. He still denies any we akness but complains of horrible right-sided leg pain in an L4-5 distribution. He denies any loss of bowel or bladder control. PAST MEDICAL HISTORY: History of atrial fibrillation, which is currently stable on Eliquis. SURGICAL HISTORY: He has a history of a L4-5 microdiskectomy on January [address] Pizano. SOCIAL HISTORY: The patient is . He is a nonsmoker. He denies any other illicit drug use an d is a sometimes alcohol user. HOME MEDICATIONS: Include diltiazem, gemfibrozil, methocarbamol, prednisone, Medrol Dosepak, which nichole trent completed on 02/15/2018, propranolol, Eliquis, Rythmol, Lopressor. ALLERGIES: Patient has no known drug allergies. FAMILY HISTORY: Reviewed and is not pertinent to this admission. OBJECTIVE: VITAL SIGNS: Blood pressure 145/94, heart rate 93, respiratory rate 18. O2 sat is 95% o n room air, temperature 37.2 degrees Celsius. CONSTITUTIONAL: Patient is alert and oriented x3. He is a well-developed, overweight male in no acute distress. He is conversing appropriately. NEUROLO GIC: His cranial nerves 2-12 are grossly intact. Tongue protrusion is in his midline. Accessory mu scles are 5/5 and equal in strength. Bilateral upper extremities and lower extremities are 5/5, equa l in strength in all muscle groups including deltoids, biceps, wrist extensors, flexors, interossei, and clinical research physician. Bilateral lower extremities are quadriceps, hamstrings, dorsiflexion, plantarflexion, and EHL are 5/5 bilaterally except for the right EHL is approximately 5- out of 5. He has some numbness on sensation to light touch on his right lower extremity. CARDIOVASCULAR: He is well perfused. RESP IRATORY: Patient has normal work of breathing. ABDOMEN: There is no guarding. EXTREMITIES: There is no cyanosis or edema noted. LABORATORY DATA: There is no current laboratory data to review. DIAGNOSTIC IMAGING: Reviewed from [facility] and where the patient has a large recurre nt right-sided disk at L4-5 resulting in foraminal stenosis and nerve compression upon the descending L4 nerve root. ASSESSMENT AND PLAN: This is a 37-year-old male who had a right-sided microdiskectomy in December h Dr. Pizano from [facility]. He, unfortunately, 6 days later has had a recurrence of h is right leg pain and an MRI of the lumbar spine up at [facility] a week ago showed a l arge recurrent right-sided disk at L4-5. He presents electively. Unfortunately, conservative measur es did not lead to any sort of pain control. The patient is miserable and unable to walk freely. Al l risks, benefits, and alternatives were discussed with the patient. The patient would like to proce ed with a redo right-sided L4-5 microdiskectomy. He had presented electively today for this surgery. He will be hopefully sent home after his surgery. He has no complications of atrial fibrillation. He will get cardiac clearance. The patient has been off his blood thinners for approximately a radha le over 1 week. /[id number]/MODL
--- NOTE | 2018-02-24 10:43 | GOP ---
DATE OF OPERATION: 02/24/2018 SURGEON: Tomas Pizano MD NEUROSURGEON: Tomas Pizano MD. METAL ENGINEERING PROCESS WORKER: Janine Bowman PA-C. ANESTHESIA: General endotracheal. PREOPERATIVE DIAGNOSIS: Recurrent right L4-5 disk herniation with L5 radiculopathy. POSTOPERATIVE DIAGNOSIS: Recurrent right L4-5 disk herniation with L5 radiculopathy. PROCEDURE PERFORMED: 1. Redo right L4-5 hemilaminotomy, medial facetectomy, microdiskectomy. 2. Use of the operating microscope. 3. O-arm/stealth navigation for tubular retractor placement. FINDINGS: Large herniated nucleus pulposus. SPECIMENS: Were no specimens. ESTIMATED BLOOD LOSS: 10 cc. INDICATIONS: The patient is a 37-year-old man who we had done a previous microdiskectomy about 2 mon ths ago at L4-5 for an L5 radiculopathy. His postop course was complicated by atrial fibrillation wi th rapid ventricular response. He presented to [facility] last week with recurrent disk herni ation and recurrent right-sided leg pain. He discharged from there, but follows up today for electiv e redo microdiskectomy. DESCRIPTION OF PROCEDURE: After informed consent was obtained from the patient, the patient was brou ght to the operating room and a formal time-out was performed, identifying the patient by name, medic al record number, and date of . Preoperative antibiotics were given. The endotracheal tube was placed, and general endotracheal anesthesia was smoothly induced. All appropriate leads were placed for intraoperative neurophysiologic monitoring. The patient was turned to the prone position on the Frantz table. All appropriate pressure points were padded and checked. The lumbar region was prep ped and draped in the normal sterile fashion. A stab incision was made over the left iliac crest, an d a percutaneous navigation pin was placed. The patient was then draped and an O-arm spin was obtain ed showing the relevant anatomy from L3-S1. Using navigation, the trajectory toward the disk space w as then marked and the previous incision was opened. The fascia was opened, and the metrics tubular dilators were used to dilate up to a 22 mm tube docking onto the lamina over the L4-5 disk space. A 22 mm x 7 cm quadrant retractor was then placed, docked onto the lamina. The operating microscope wa s brought on the field and the remainder of the procedure was performed under high-power magnificatio n. First, using the navigation, we were able to localize the relevant anatomy. The previous hemilam inotomy was visualized. There was a lot of scar tissue over the dura and this was carefully separate d from the bone. The high-speed drill was used to drill about an extra millimeter or 2 onto the medi al facetectomy, which was confirmed with navigation that this would be possible without destabilizing the joint. Next, the scar tissue was from the nerve root, and the nerve root was retracte d medially. The large disk herniation was visualized in the lateral recess and the posterior longitu dinal ligament which was covering this was opened. A very large disk fragment was then fro m the surrounding tissues and was able to be removed en bloc. Nerve hooks and dissectors were used t o feel underneath the nerve root, and there was no further compression. Therefore, the wound was animal cop iously irrigated using bacitracin irrigation. Some local anesthetic was placed over the nerve root a nd infiltrated into the surrounding tissues for postoperative analgesia. The quadrant retractor was removed, and the fascia was closed using 0 Vicryl interrupted sutures. The deep dermis was closed us ing interrupted 2-0 Vicryls, and the skin was closed using Steri-Strips. The navigation frame was re moved, and this incision was also closed. The patient was then awakened in the operating room where he was transferred to the PACU in stable condition. There were no operative complications. I was sc rubbed and present for the entire procedure. All sponge and needle counts were correct at the end of the case. FLUIDS AND URINE OUTPUT: Per the anesthesia record. DRAINS: There were no drains. /[id number]/MODL
[2018-02-24] MEDS ORDERED: METHOCARBAMOL 750 MG TAB PO PRN (11:05)
--- NOTE | 2018-02-24 11:05 | POSTOPPROG ---
Post Op Note Date of Operation: 02/24/18 Surgeon: Tomas Pizano Frame Coverer: Janine Lino PA-C Anesthesia: GET(General Endotracheal) Pre-op Diagnosis: Lumbar radiculopathy Post-op Diagnosis: same Procedure: Re0Do l4/5 right sided microdiscectomy Inf/Abcess present in the surg proc area at time of surgery?: No Depth: Organ Space EBL: Minimal Complications: None observed SOAP Progress Note Assessment/Plan: Assessment: Plan: 02/24/18 11:02 A/P: 37 yo male sp redo L4/5 right sided microdiscectomy -D/C home from PACU when pain controlled, tolerating po, continues in NSR - Optimize pain management -No bending at the waist, lifting more than 5-10 pounds or twisting at the waist -Walking is encouraged -Call with any changes in exam -Seen by Dr. Pizano in PACU -Follow up 6 weeks postop S: Doing well. has incisional pain as expected but leg pain improved O: NAD, VSS Following commands, speech fluent CN II-CII gorssly intact BLE 5/5= Incision c/d/i- dressed Objective: Vital Signs Temp Pulse Resp BP Pulse Ox 36.1 C 93 15 129/82 H 91 L 02/24/18 10:22 02/24/18 08:31 02/24/18 10:25 02/24/18 10:25 02/24/18 10:25
[2018-02-24 11:48] VITALS: BP 151/106
== END 2018-02-24 12:45 | disposition home or self-care (01) ==
LOC: F3N 06:24 → UNDOADMOB 06:24 → FSGY 06:24 → EDSTATUS 08:30 → FSGY 12:45 → UNDODISOB 12:45
PROVIDERS: ATTEND Neurological Surgery
PROC: 0SB20ZZ Excision of Lumbar Vertebral Disc, Open Approach (ICD-10-PCS; principal; 2018-02-24 08:30)
PROC: 00NY0ZZ Release Lumbar Spinal Cord, Open Approach (ICD-10-PCS; principal; 2018-02-24 08:30)
DX: M51.26 Other intervertebral disc displacement, lumbar region (principal); M54.16 Radiculopathy, lumbar region
CPT/HCPCS: J0690; J1100; J2250; J2704; J3010

== ENCOUNTER → 2018-05-06 | Outpatient (CLI) | payer OTHER ==
[~2018-05-06] MED LIST changes: +IOPAMIDOL (ISOVUE 370) 100 ML BTL IV ONE; -ceFAZolin 2 GM/SWFI 2 GM/20 ML SYR IVP ONE
== END ==
LOC: FIMAGING 10:55
PROVIDERS: ATTEND Internal Medicine Cardiovascular Disease
DX: I48.91 Unspecified atrial fibrillation (principal)
CPT/HCPCS: Q9967

== ENCOUNTER 2018-05-12 10:56 | Observation (INO) | payer OTHER ==
[2018-05-12] MEDS ORDERED: NS 1,000 ML IV ONE (11:03)
--- NOTE | 2018-05-12 11:27 | PDGENHP ---
History & Physical Chief Complaint: symptomatic afib History of Present Illness: palpitations Relevant Physical Exam: s1s2. cta. ao3 Cardiorespiratory Assessment: for cb pvi
[2018-05-12 11:31] LABS: PLATELET COUNT 380 10^3/uL (150-400)
[2018-05-12 11:42] LABS: INR 1.03 (0.83-1.16); PROTIME(PATIENT) 13.1 SEC (12.0-15.0)
[2018-05-12] MEDS ORDERED: HEPARIN/DEXTROSE 25,000 UNIT/500 ML BAG ONE (12:14)
[2018-05-12] MEDS ORDERED: LIDOCAINE 1% 300 MG/30 ML SDV ONE (12:14)
[2018-05-12] MEDS ORDERED: IOPAMIDOL (ISOVUE-300) 100 ML BTL ONE (12:15)
[2018-05-12] MEDS ORDERED: HEPARIN 10,000 UNIT/10 ML MDV (1,000 UNIT/ML) ONE (12:15)
[2018-05-12] MEDS ORDERED: BUPIVACAINE 0.75% 10 ML SDV ONE (12:15)
--- NOTE | 2018-05-12 12:23 | CPEKG ---
Test Reason : OPEN Blood Pressure : / mmHG Vent. Rate : 085 BPM Atrial Rate : 085 BPM P-R Int : 162 ms QRS Dur : 099 ms QT Int : 389 ms P-R-T Axes : 034 077 044 degrees QTc Int : 463 ms Sinus rhythm Confirmed by Baudilio Jackson ([id number]) on 05/12/2018 12:22:50 PM Referred By: Norman Ventura Confirmed By:Baudilio Jackson
[2018-05-12] MEDS ORDERED: MIDAZOLAM 2 MG/2 ML VIAL ONE (12:50)
[2018-05-12] MEDS ORDERED: PROPOFOL/EMULSION 500 MG/50 ML BOTTLE IV ONE ×5 (13:02→14:00)
[2018-05-12] MEDS ORDERED: fentaNYL 250 MCG/5 ML INJ ONE ×2 (13:02→13:52)
[2018-05-12] MEDS ORDERED: ROCURONIUM 100 MG/10 ML VIAL ONE ×2 (13:03→14:01)
[2018-05-12] MEDS ORDERED: GLYCOPYRROLATE 0.2 MG/1 ML VIAL ONE (14:01)
[2018-05-12] MEDS ORDERED: DEXAMETHASONE 4 MG/ML VIAL ONE ×2 (14:01)
[2018-05-12] MEDS ORDERED: ONDANSETRON 4 MG/2 ML VIAL IVP PRN (15:26)
[2018-05-12] MEDS ORDERED: HYDROCODONE/APAP 5/325 TAB PO PRN (15:26)
[2018-05-12] MEDS ORDERED: HYDROmorphONE/DILAUDID 2 MG/ML INJ IVP PRN (15:26)
[2018-05-12] MEDS ORDERED: fentaNYL 100 MCG/2 ML INJ IVP PRN (15:26)
[2018-05-12] MEDS ORDERED: oxyCODONE IR 5 MG TAB PO PRN (15:26)
[2018-05-12] MEDS ORDERED: NALOXONE HCL 0.4 MG/ML INJ IVP PRN (15:26)
[2018-05-12] MEDS ORDERED: ONDANSETRON 4 MG/2 ML VIAL ONE ×2 (15:29)
[2018-05-12] MEDS ORDERED: fentaNYL 100 MCG/2 ML INJ ONE (15:41)
[2018-05-12] MEDS ORDERED: BISACODYL 5 MG EC TAB PO PRN (15:46)
[2018-05-12] MEDS ORDERED: PROTAMINE SULFATE 50 MG/5 ML VIAL IVP ONE (15:55)
--- NOTE | 2018-05-12 16:03 | EPPROC ---
Electrophysiology Procedure Note: ELECTROPHYSIOLOGIC STUDY AND BALLOON-CATHETER MEDIATED CRYOABLATION FOR PAROXYSMAL ATRIAL FIBRILLATION AND ATRIAL FLUTTER Procedures performed: 58866-97 EP evaluation with RA/RV/LA pace/record, with arrhythmia induction 99132-97 EP evaluation with RA/RV pace record, insert/reposition catheter, with arrhythmia induction 92038 Atrial fibrillation ablation Second arrhythmia Intracardiac echocardiogram Transseptal puncture Fluoroscopy OPERATORS 1. Dr. Norman Ventura 2. Dr. Tonny Calloway INDICATION: Paroxysmal atrial fibrillation Atrial flutter PROCEDURE: The patient arrived in the Electrophysiology Laboratory in the fasting state. The right groin, left groin and right infraclavicular area were prepped and draped in the usual sterile fashion. Anesthesiologist administered general anesthesia Dr. Luis Fernando Bone . All catheters were placed percutaneously using the Seldinger technique and advanced into position under fluoroscopic guidance. One #7 Thai deflectable octapolar electrode catheter was placed in the His-bundle position via the left femoral vein (2mm spacing, IVC electrode for unipolar recordings). This catheter was placed in the coronary sinus after transseptal puncture and later placed in the SVC-R subclavian vein junction to pace the right phrenic nerve during right pulmonary vein ablation. One #8 Thai AcuNaV ultrasound catheter was placed in the left femoral vein and advanced into the right atrium. Programmed stimulation was performed from the right atrium, left atrium (CS) and right ventricle. There was no evidence of AV accessory pathway. Intracardiac echo evaluation of the left atrium and pulmonary veins was performed. Baseline ACT was drawn and heparin bolus was administered and heparin drip was started prior to transseptal puncture. ACT was checked every 15 minutes and maintained in the range of 350 seconds. One 14Fr short sheath was placed in the right femoral vein. One 8Fr SL1 sheath was advanced into the right atrium via the 14Fr short sheath. Transseptal puncture was performed under intracardiac ultrasound, fluoroscopic and hemodynamic guidance placing the sheath into the left atrium. Callender RF needle ( C0 curve) was used. The mean left atrial pressure was 16 mmHg. Pulmonary vein angiogram was done using SL1 sheath. CT angiography of pulmonary veins was done previously. There were distinct LSPV, LIPV, RSPV and RIPV. The SL1 sheath was exchanged for a BuildOut Flexcath sheath using an Amplatz stiff guide wire. A 28 mm Cryoballoon catheter with a 20 mm Achieve catheter was placed via the sheath into the left atrium. Intracardiac ultrasound and PV angiograms were used to assist in placing the mapping catheter at the antrum of the pulmonary veins. All pulmonary veins were isolated successfully using cryoballoon ablation using freeze/thaw/freeze cycles at 2-3-minute intervals, with good vpgh-se-chrige of isolation. Coumadin ridge/Ligament of Jm region was ablated. Pre and post pulmonary vein recordings were measured on the spiral Achieve catheter to ensure complete pulmonary vein isolation. During the right-sided ablation, phrenic nerve pacing was performed to assess the phrenic nerve strength ( manually and with ICE visualization of liver movement during phrenic capture) and the phrenic nerve was intact throughout the right-sided ablation and at the end of the procedure. There was transient phrenic nerve palsy for 6 minutes during ablation of RSPV. RIPV required 3 freezes. An esophageal temperature probe (12 electrode, Circa) was placed by the anesthesiologist at the beginning of the procedure. Esophageal temperature was monitored continuously and cryoablation was interrupted if esophageal temperature was <15 C. Cryoapplications 11 total cryoablation time 1554 s. Sheath was withdrawn into RA and bidirectional STSF catheter was placed into RA and also Halo catheter along TA. Ablation was performed in CT isthmus achieving bidirectional conduction block. Septal to lateral conduction time 155 ms. ICE imaging post ablation was consistent with pre ablation imaging with no changes noted, moreover there was no left atrial/left ventricular thrombus and no pericardial effusion. The catheters were withdrawn. Protamine was given. Venous vascular access sheaths were removed in the EP lab after placing subcutaneous pursestring suture. The patient was recovered from anesthesia. There were no complications. The patient was arousable and moving all four extremities at the end of the procedure. CONCLUSIONS: 1. Paroxysmal atrial fibrillation. 2. Successful pulmonary vein isolation procedure (left and right pulmonary vein antrum) using cryoballoon ablation. 3. Atrial flutter, successful ablation of CT isthmus. 4. No apparent complications. Patient Problems: Problems Problem Status Onset Calculus of right kidney Acute Atrial fibrillation Acute Ureterolithiasis Acute
[2018-05-12] MEDS: GEMFIBROZIL 600 MG TAB PO SCH (17:10)
[2018-05-12] MEDS: CEPACOL LOZENGE PO PRN (20:22)
[2018-05-12] MEDS: METOPROLOL TARTRATE 25 MG TAB PO SCH (21:05)
[2018-05-12] MEDS: APIXABAN 5 MG TAB PO SCH (22:09)
[2018-05-13 05:59] LABS: PLATELET COUNT 349 10^3/uL (150-400)
[2018-05-13] MEDS: METOPROLOL TARTRATE 25 MG TAB PO SCH (07:51)
[2018-05-13] MEDS: GEMFIBROZIL 600 MG TAB PO SCH (07:52)
[2018-05-13] MEDS: APIXABAN 5 MG TAB PO SCH (07:52)
[2018-05-13] MEDS: CEPACOL LOZENGE PO PRN (08:11)
[2018-05-13] MEDS ORDERED: PANTOPRAZOLE SODIUM 40 MG TAB PO SCH (09:00)
--- NOTE | 2018-05-13 10:59 | ECHO ---
[email or web address] [address] Main: [phone] Echocardiography Examination Transthoracic Name: JOYCELYN RUSH MR#: [id number] Study Date: 05/13/2018 Study Time: 07:47 AM Date of : 1980 Age: 37 year(s) Height: 193 cm (76 in.) Weight: 133.81 kg (295 lb.) BSA: 2.61 m2 Gender: Male Examination: Echo Indication: Post EP Image Quality: Contrast: Requested by: ?? BP: 134 mmHg/92 mmHg Heart Rate: 82 bpm Rhythm: Indication: Post EP Procedure Staff Referring Physician: Otr Truck Driver: Francis Ritchie RDCS Reading Physician: Baudilio Jackson MD Requesting Provider: Norman Ventura MD Indication: Post EP Measurements Chambers AV/MV Label Value Normal Value Label Value Normal Value IVSd, 2D 1.1 cm (0.6cm - 1.1cm) AV Opening, MM 2.4 cm LVDd, 2D 5.1 cm (4.2cm - 5.9cm) AV PGmax 6 mmHg LVDs, 2D 3.4 cm (2.1cm - 4cm) AV Vmax, Caliper 1.25 m/s (1m/s - 1.7m/s) LVEF, 2D 63 % (54% - 74%) ALEXI D (continuity eq. 3 cm2 LVOT PGmax 5 mmHg Vmax) LVOT Vmax 1.07 m/s (0.7m/s - 1.1m/s) MV A Vmax 0.49 m/s LVOTd 2.1 cm (1.9cm - 2.1cm) MV E' lateral 0.11 m/s LVPWd, 2D 1.2 cm (0.6cm - 1cm) MV E' mean 0.1 m/s RVDd, 2D 2.5 cm (1.9cm - 3.8cm) MV E' septal 0.1 m/s TAPSE 3.1 cm MV E Vmax 0.74 m/s LA Area, A2C 24.2 cm2 (0cm2 - 20cm2) MV E/A 1.51 LA Volume, A2C 70 ml (18ml - 58ml) MV E/E' lateral 6.8 LADs, 2D 4 cm (3cm - 4cm) MV E/E' mean 7.05 Additional Vessels MV E/E' septal 7.6 (0.6 - 2.6) Label Value Normal Value TV/PV AoAsc 3.1 cm Label Value Normal Value AoRoot, MM 3.2 cm (2.2cm - 3.7cm) PV PGmax 8 mmHg PV Vmax, Caliper 1.38 m/s (0.6m/s - 0.9m/s) Patient: JOYCELYN RUSH Study Date: 05/13/2018 Page 1 of 2 07:47 AM Conclusions Left Ventricle: Left ventricle is normal in size. Normal global systolic left ventricular function. Mitral Valve: Mitral valve appears structurally normal. Trivial mitral regurgitation. Aortic Valve: Aortic valve is poorly visualized. No aortic valve regurgitation. There is no aortic stenosis. Pericardium: No pericardial effusion. Findings Left Ventricle: Left ventricle is normal in size. Normal global systolic left ventricular function. Left ventricle wall thickness is normal. There is no regional wall motion abnormalities. No LV hypertrophy. Right Ventricle: Normal size right ventricle. Right ventricular systolic function is normal. Pulmonary artery pressure cannot be obtained. Left Atrium: The left atrium is normal in size. Right Atrium: The right atrium is normal in size. Mitral Valve: Mitral valve appears structurally normal. Trivial mitral regurgitation. No mitral valve stenosis. There is no mitral calcification. Aortic Valve: Aortic valve is poorly visualized. No aortic valve regurgitation. There is no aortic stenosis. Tricuspid Valve: Trivial tricuspid regurgitation. Pulmonic Valve: No pulmonic valve regurgitation is evident. Aorta: The aortic root size in M-mode measures 3.2 cm. The ascending aorta measures 3.1 cm. Aorta Measurements AoRoot, MM is 3.2 cm. Pericardium: A pericardial fat pad is present. No pericardial effusion. Exam Details Procedure Ordered: Echo (No Signature Object) Patient: JOYCELYN RUSH Study Date: 05/13/2018 Page 2 of 2 07:47 AM [id number]
[2018-05-13 12:14] VITALS: BP 130/77
--- NOTE | 2018-05-13 13:27 | GDS ---
[f rep st] DISCHARGE SUMMARY ADMISSION DIAGNOSES: 1. Atrial fibrillation. 2. Atrial flutter. 3. Hypertension. DISCHARGE DIAGNOSES: 1. Atrial fibrillation status post cryoballoon pulmonary vein isolation. 2. Atrial flutter status post successful cavotricuspid isthmus ablation. 3. Hypertension. PROCEDURES PERFORMED DURING HOSPITALIZATION: 1. Electrocardiogram. 2. Echocardiogram. 3. Electrophysiology study. 4. Atrial flutter ablation. 5. Atrial fibrillation ablation with cryoballoon pulmonary vein isolation. HOSPITAL COURSE: Patient presented 05/12/2018 for an atrial fibrillation and atrial flutter ablation in the setting of increasingly frequent and symptomatic episodes of atrial arrhythmia. He underwent successful cryoballoon pulmonary vein isolation and atrial flutter ablation with Dr. Norman Ventura and Dr. Quincy Calloway. He had no intra-procedure complications and he has done very well in the postpr ocedure setting. He has been up ambulating around his room this morning without issue, and he is domonique ropriate and stable for discharge home today. PHYSICAL EXAMINATION: GENERAL: Alert and oriented x4. No apparent distress. VITAL SIGNS: Blood p ressure 130/77, heart rate 76, respiratory rate 16, SpO2 of 94% on room air. LUNGS: Clear to auscul tation without adventitious breath sounds. CARDIAC: Normal S1, S2. No S3, S4, or murmurs. Rhythm is regular. ABDOMEN: Normoactive bowel sounds times all 4 quadrants. No masses or tenderness to pa lpation. SKIN: Norge, warm, dry without cyanosis, clubbing, or peripheral edema. EXTREMITIES: Bila teral pursestring sutures removed intact without evidence of hematoma, redness, oozing, swelling, or warmth. Pulses are 2+ bilaterally. No edema. LABORATORY STUDIES: Drawn today. WBCs 11.29. CBC otherwise stable compared to preprocedure. BMP s table compared to preprocedure. Troponin 5.030. Please note, elevated troponin and WBCs are expecte d in the postprocedure setting. PROCEDURES: Electrophysiology study, atrial fibrillation ablation, and atrial flutter ablation as me ntioned above. The preliminary review of his echocardiogram done this morning demonstrates stable left ventricular s ystolic function without new wall motion abnormalities or pericardial effusion. Electrocardiogram this morning demonstrates normal sinus rhythm with LA interval measuring 165 msec, no new ST or T-wave abnormalities. DISCHARGE DISPOSITION: The patient will be discharged home in stable condition. He is under activit y restrictions as below. DISCHARGE MEDICATIONS: Please see discharge medication reconciliation sheet for full details. Wilber trent note that patient was restarted on his Eliquis 6 hours post procedure. He will continue omeprazole for GI prophylaxis for the next 6 weeks. He understands that he may not stop his Eliquis for any re ason in the next 3 months without getting this cleared by his electrophysiology team. DISCHARGE INSTRUCTIONS: 1. Post atrial fibrillation and atrial flutter ablation instructions reviewed with the patient and h is in detail. 2. We discussed activity restrictions including lifting more than 10 pounds and avoidance of submerg ed bathing for 10 days. 3. He will get up and walk around every 45 minutes for 45 days while awake. 4. He will avoid unpressurized air travel, scuba diving for the next 6 months, and he will present t o our clinic for an echocardiogram prior to engaging in either of these activities. 5. We also reviewed bleeding precautions, medication compliance, monitoring for signs and symptoms o f infection, monitoring for atrioesophageal fistula, and monitoring for sustained arrhythmias. He un derstands that upper endoscopy and/or CT with oral contrast are not appropriate if he has symptoms co nsistent with atrioesophageal fistula within the next 6 weeks. 6. At the time of discharge, patient verbalized understanding of all discharge instructions without questions or concerns. He has a followup scheduled within the next 4 weeks and he will contact our kristen kan with any new or concerning symptoms prior to his upcoming visit. Time spent on discharge greater than 30 minutes. /[id number]/MODL
--- NOTE | 2018-05-13 13:32 | ASMTLACE ---
LACE Length of stay for Answers: Less than 1 day current admission Acuity / Level of Answers: No Care: Did the patient have an inpatient admission? Comorbidities - select Answers: Other Notes: AFib; HTN; HLD all that apply # of Emergency department Answers: 0 visits in the last 6 months Score: 1 Date Signed: 05/13/2018 01:32 PM Electronically Signed By:Samantha Cheng RN
--- NOTE | 2018-05-13 16:34 | CPEKG ---
Test Reason : OPEN Blood Pressure : / mmHG Vent. Rate : 080 BPM Atrial Rate : 080 BPM P-R Int : 165 ms QRS Dur : 105 ms QT Int : 389 ms P-R-T Axes : 009 069 039 degrees QTc Int : 449 ms Sinus rhythm Confirmed by Baudilio Jackson ([id number]) on 05/13/2018 4:33:32 PM Referred By: Norman Ventura Confirmed By:Baudilio Jackson
== END 2018-05-13 13:24 | disposition home or self-care (01) ==
LOC: FCATH 10:56 → F2N 16:19
PROVIDERS: ADMIT Internal Medicine Cardiovascular Disease; ATTEND Internal Medicine Cardiovascular Disease
DX: I48.91 Unspecified atrial fibrillation (principal); I48.92 Unspecified atrial flutter; I10 Essential (primary) hypertension
CPT/HCPCS: 93005; 93306; 93312; 93613; 93655; 93656; 93662; C1893; G0378; C1730; C1731; C1732; C1733; C1759; C1766; J1100; J1644; J2250; J2405; J2704; J2720; J3010; Q9967